=== PATIENT | male | born 1945 | race Caucasian/White ===

== ENCOUNTER → 2016-11-25 | Outpatient (CLI) | payer OTHER, MEDICARE ==
[~2016-11-25] MED LIST: ASPIR 8181 MG PO; ATORVASTATIN CA40 MG PO; FISH OIL 1,001000 M2 PO; HYDROCODONE-AP1 EAC6 PO; KEFLEX500 MG PO; UNICOMPLEX M TA1 TA1 PO
[2016-11-25 08:33] LABS: CREATININE 1.2 mg/dL (0.7-1.3)
== END ==
LOC: CAT 08:03 → LAB 09:18 → CAT 09:21
PROVIDERS: Internal Medicine
DX: R51 Headache (principal); R05 Cough

== ENCOUNTER → 2017-07-26 | Outpatient (CLI) | payer OTHER, MEDICARE | LOC: CAT 10:47 | DX: M48.54XA Collapsed vertebra, not elsewhere classified, thoracic region, initial encounter for fracture (principal); J84.9 Interstitial pulmonary disease, unspecified; N40.1 Benign prostatic hyperplasia with lower urinary tract symptoms; N13.8 Other obstructive and reflux uropathy; I63.9 Cerebral infarction, unspecified; I25.10 Atherosclerotic heart disease of native coronary artery without angina pectoris; E78.00 Pure hypercholesterolemia, unspecified ==

== ENCOUNTER → 2017-08-02 | Outpatient (CLI) | payer OTHER, MEDICARE | LOC: MRI 09:10 | DX: S73.191A Other sprain of right hip, initial encounter (principal); M16.0 Bilateral primary osteoarthritis of hip; N40.1 Benign prostatic hyperplasia with lower urinary tract symptoms; N13.8 Other obstructive and reflux uropathy; I25.10 Atherosclerotic heart disease of native coronary artery without angina pectoris; E78.00 Pure hypercholesterolemia, unspecified; X58.XXXA Exposure to other specified factors, initial encounter; Y93.89 Activity, other specified; Y92.89 Other specified places as the place of occurrence of the external cause; Y99.8 Other external cause status ==

== ENCOUNTER → 2017-10-21 | Outpatient (CLI) | payer OTHER, MEDICARE | LOC: RAD 10:01 | DX: M43.8X4 Other specified deforming dorsopathies, thoracic region (principal); M06.851 Other specified rheumatoid arthritis, right hip ==

== ENCOUNTER → 2017-12-20 | Outpatient (CLI) | payer OTHER, MEDICARE ==
--- NOTE | ~2017-12-20 | 2DMMODE ---
[facility] [address] [place] [address] 2 D/M-MODE ECHOCARDIOGRAM Name: YUMILAVERNE AYON Room #: REG [facility]#: [id number] Admission: 12/20/17 Attend Phys: Renan Bhardwaj Discharge: Date of : 47 Date of Service: 12/20/17 1054 Report #: [id number] THIS REPORT FOR: //name// APPROVED REPORT Study performed: 12/20/2017 08:10:56 EXAM: Comprehensive 2D, Doppler, and color-flow Echocardiogram Patient Location: Out-Patient Status: routine BSA: 2.22 HR: 59 bpm BP: 158/106 mmHg Rhythm: NSR Other Information Study Quality: Adequate Indications Short of breath, CAD, stent, HLP 2D Dimensions RVDd: 31.33 mm LVEF(%): 56.91 (>50%) IVSd: 12.45 (7-11mm) LVOT Diam: 25.17 (18-24mm) LVDd: 43.62 mm PWd: 10.15 (7-11mm) Ascending Ao: 37.80 (22-36mm) LVDs: 30.70 (25-40mm) Aortic Root: 43.20 mm Viera's LVEF: 56.91 % Volumes Left Atrial Volume (Systole) Single Plane 4CH: 44.82 mL Single Plane 2CH: 61.24 mL LA ESV Index: 26.00 mL/m2 Aortic Valve AoV Peak Evgeny.: 1.08 m/s AO Peak Gr.: 4.64 mmHg LVOT Max P.66 mmHg LVOT Max V: 0.64 m/s AMANDA Vmax: 2.97 cm2 Mitral Valve E/A Ratio: 0.8 MV Decel. Time: 231.62 ms [facility] [address] [place] [address] 2 D/M-MODE ECHOCARDIOGRAM Name: LAVERNE EASON Room #: REG [facility]#: [id number] Admission: 12/20/17 Attend Phys: Renan Bhardwaj Discharge: Date of : 47 Date of Service: 12/20/17 1054 Report #: [id number] MV E Max Evgeny.: 0.62 m/s MV A Evgeny.: 0.81 m/s MV PHT: 67.17 ms IVRT: 133.79 ms Pulmonary Valve PV Peak Evgeny.: 0.89 m/s PV Peak Gr.: 3.15 mmHg Pulmonary Vein P Vein S: 0.49 m/s P Vein D: 0.33 m/s P Vein S/D Ratio: 1.48 Tricuspid Valve TR Peak Evgeny.: 1.70 m/s RAP Estimate: 5.00 mmHg TR Peak Gr.: 12.00 mmHg PA Pressure: 17.00 mmHg Left Ventricle The left ventricle is normal size. Mild basal septal hypertrophy is present. Left ventricular systolic function is normal. LVEF is 55%. Mild diastolic dysfunction is present (impaired relaxation pattern). Right Ventricle The right ventricle is normal size. The right ventricular systolic function is normal. Atria The left atrium size is normal. The right atrium size is normal. Aortic Valve Aortic valve is mildly calcified. Trace aortic regurgitation. There is no aortic valvular stenosis. Mitral Valve The mitral valve is normal in structure. Mild mitral regurgitation. Tricuspid Valve The tricuspid valve is normal in structure. Mild tricuspid regurgitation. Estimated PAP is 17mmHg. Pulmonic Valve The pulmonary valve is normal in structure. Trace pulmonic [facility] [address] [place] [address] 2 D/M-MODE ECHOCARDIOGRAM Name: LAVERNE EASON Room #: REG [facility]#: [id number] Admission: 12/20/17 Attend Phys: Renan Bhardwaj Discharge: Date of : 47 Date of Service: 12/20/17 1054 Report #: [id number] regurgitation. 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 The ascending aorta is normal in size. IVC is normal in size and collapses >50% with inspiration. Pericardium There is no pericardial effusion. <Conclusion> The left ventricle is normal size. LVEF is 55%. Aortic valve is mildly calcified. Trace aortic regurgitation. The mitral valve is normal in structure. Mild mitral regurgitation. The tricuspid valve is normal in structure. Mild tricuspid regurgitation. Estimated PAP is 17mmHg. 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 There is no pericardial effusion. <ELECTRONICALLY SIGNED> By: Renan Cordon MD 12/20/17 1054 1054 1054 Renan Cordon MD /INF
== END ==
LOC: NUC 06:49
DX: I25.10 Atherosclerotic heart disease of native coronary artery without angina pectoris (principal); I08.1 Rheumatic disorders of both mitral and tricuspid valves; R06.00 Dyspnea, unspecified

== ENCOUNTER 2018-06-03 09:02 | Emergency (ER) | payer OTHER, MEDICARE ==
[~2018-06-03] VITALS: Ht 188 cm; Wt 95.3 kg
[2018-06-03 09:27] LABS: URINE BILIRUBIN NEGATIVE (Negative); URINE BLOOD NEGATIVE (Negative); URINE CLARITY CLEAR; URINE COLOR YELLOW; URINE GLUCOSE-RANDOM* NEGATIVE (Negative); URINE KETONES NEGATIVE (Negative); URINE LEUKOCYTES-REFLEX NEGATIVE (Negative); URINE NITRITE-REFLEX NEGATIVE (Negative); URINE PROTEIN (DIPSTICK) NEGATIVE (Negative); URINE SPECIFIC GRAVITY 1.025 (1.005-1.035); URINE UROBILINOGEN 0.2 E.U./dl (0.2-1.0)
[2018-06-03 09:28] LABS: ABSOLUTE NEUTROPHILS 3.2 thou/uL (1.4-8.2); BASOPHILS 0.8 % (0.0-2.0); EOSINOPHILS 4.3 % (0.0-3.0); HEMATOCRIT 41.2 % (42.0-52.0); HEMOGLOBIN 14.3 gm/dL (14.0-18.0); LYMPHOCYTES 29.5 % (24.0-44.0); MCH 32.1 pg (26.0-34.0); MCHC 34.8 g/dL (28.0-37.0); MCV 92.1 fL (80.0-100.0); MONOCYTES 10.9 % (1.0-8.0); PLATELET COUNT 243 thou/uL (150-400); POLYS 54.5 % (36.0-66.0); RBC 4.47 mil/uL (4.50-6.00); RDW 13.6 % (10.5-14.5); WBC 5.9 thou/uL (4.0-11.0)
[2018-06-03 09:34] LABS: CREATININE 1.1 mg/dL (0.7-1.3); POTASSIUM 4.1 mmol/L (3.5-5.1)
[2018-06-03 09:41] LABS: TOTAL BILIRUBIN 1.4 mg/dL (<0.1-1.0); TOTAL PROTEIN 7.2 g/dL (6.4-8.2)
[2018-06-03] MEDS ORDERED: IMODIUM A-D2 MG PO (14:27)
[2018-06-03 14:54] VITALS: BP 123/77
== END 2018-06-03 14:56 | disposition home or self-care (01) ==
LOC: ER 09:02
PROVIDERS: Student in an Organized Health Care Education/Training Program
DX: R19.7 Diarrhea, unspecified (principal); R53.1 Weakness; R10.9 Unspecified abdominal pain; I25.2 Old myocardial infarction; Z88.2 Allergy status to sulfonamides; Z88.8 Allergy status to other drugs, medicaments and biological substances

== ENCOUNTER → 2019-04-18 | Outpatient (CLI) | payer OTHER, MEDICARE ==
[~2019-04-18] VITALS: Ht 188 cm; Wt 95.3 kg
[~2019-04-18] MED LIST changes: +CRESTOR40 MG PO; +IMODIUM A-D2 MG PO; +NITROGLYCERIN0.4 MG SUBLING; +RITUXAN100 MG/10 IV
--- NOTE | 2019-04-23 12:48 | P ---
[facility] [place] [address] PROCEDURE REPORT Name: LAVERNE EASON Room #: REG [facility]#: [id number] Admission: 04/18/19 Attend Phys: Chris Skinner Discharge: Date of : 47 Report #: [id number] THIS REPORT FOR: //name// CC: Chris Huggins MD DATE OF SERVICE: 04/18/2019 PROCEDURE PERFORMED: Colonoscopy. HISTORY OF PRESENT ILLNESS: The patient is a 73-year-old male with a history of colon polyps. Denies any symptoms. Here for a 5-year followup. No family history of colon cancer. DESCRIPTION OF PROCEDURE: The risks and benefits of the procedure were explained to the patient, those risks including but not limited to bleeding, perforation and the risk of sedation. He understood these risks and gave informed consent. Sedation was given using propofol per anesthesia. Next, a digital rectal exam was initially performed, which was normal. Next, using a standard Olympus colonoscope, the scope was placed in the patient's anus and advanced under direct vision to the cecum. The overall prep was excellent. The cecum and ileocecal valve were normal in appearance. The ascending, transverse and descending colon were normal. A few scattered diverticula were noted in the sigmoid colon, no evidence of inflammation, otherwise normal. The rectal mucosa was normal. On retroflexion, small nonbleeding internal hemorrhoids were noted. The scope was then withdrawn and the procedure terminated. The patient tolerated the procedure well. IMPRESSION: 1. Sigmoid diverticulosis. 2. Small internal hemorrhoids. 3. Otherwise, normal colonoscopy. RECOMMENDATIONS: Consider repeat colonoscopy in 10 years. Thank you for allowing me to participate in his care. <ELECTRONICALLY SIGNED> By: Chris Hinton MD 04/23/19 1248 0936 0035 Chris Hinton MD /nt
== END | disposition home or self-care (01) ==
LOC: GI 03-07 10:09
DX: Z12.11 Encounter for screening for malignant neoplasm of colon (principal); Z86.010 Personal history of colon polyps; K57.30 Diverticulosis of large intestine without perforation or abscess without bleeding; K64.8 Other hemorrhoids; E78.5 Hyperlipidemia, unspecified; I25.2 Old myocardial infarction; M06.9 Rheumatoid arthritis, unspecified; Z87.891 Personal history of nicotine dependence; Z86.73 Personal history of transient ischemic attack (TIA), and cerebral infarction without residual deficits; Z85.828 Personal history of other malignant neoplasm of skin; Z98.41 Cataract extraction status, right eye; Z98.42 Cataract extraction status, left eye; Z98.890 Other specified postprocedural states; Z79.899 Other long term (current) drug therapy; Z88.2 Allergy status to sulfonamides; Z88.8 Allergy status to other drugs, medicaments and biological substances; Z79.82 Long term (current) use of aspirin
CPT/HCPCS: 62110; 62900

== ENCOUNTER → 2019-07-12 | Outpatient (CLI) | payer OTHER, MEDICARE ==
[2019-07-12 12:23] LABS: CREATININE 1.5 mg/dL (0.7-1.3)
== END ==
LOC: MRI 11:20
PROVIDERS: Family Medicine
DX: G31.9 Degenerative disease of nervous system, unspecified (principal); R90.82 White matter disease, unspecified; H53.419 Scotoma involving central area, unspecified eye; M06.9 Rheumatoid arthritis, unspecified

== ENCOUNTER → 2019-07-30 | Outpatient (CLI) | payer OTHER, MEDICARE | LOC: SJCVC 09:36 | DX: I45.10 Unspecified right bundle-branch block (principal); R94.31 Abnormal electrocardiogram [ECG] [EKG]; I25.10 Atherosclerotic heart disease of native coronary artery without angina pectoris; I73.9 Peripheral vascular disease, unspecified; E78.00 Pure hypercholesterolemia, unspecified; Z79.82 Long term (current) use of aspirin; Z79.2 Long term (current) use of antibiotics; Z90.89 Acquired absence of other organs; Z79.899 Other long term (current) drug therapy; Z87.891 Personal history of nicotine dependence; Z86.718 Personal history of other venous thrombosis and embolism ==

== ENCOUNTER → 2019-09-03 | Outpatient (CLI) | payer OTHER, MEDICARE | LOC: SJCVC 09:45 | DX: I25.10 Atherosclerotic heart disease of native coronary artery without angina pectoris (principal); I73.9 Peripheral vascular disease, unspecified; N40.0 Benign prostatic hyperplasia without lower urinary tract symptoms; E78.00 Pure hypercholesterolemia, unspecified; Z79.899 Other long term (current) drug therapy; Z87.891 Personal history of nicotine dependence ==

== ENCOUNTER → 2019-12-31 | Outpatient (CLI) | payer OTHER, MEDICARE | LOC: RAD 11:00 | PROVIDERS: ATTEND Family Medicine | DX: R05 Cough (principal); M48.54XA Collapsed vertebra, not elsewhere classified, thoracic region, initial encounter for fracture ==

== ENCOUNTER → 2020-01-31 | Outpatient (CLI) | payer OTHER, MEDICARE | LOC: SJCVCIMAG 07:41 | PROVIDERS: ATTEND Internal Medicine | DX: I34.0 Nonrheumatic mitral (valve) insufficiency (principal); I51.7 Cardiomegaly; I25.10 Atherosclerotic heart disease of native coronary artery without angina pectoris ==

== ENCOUNTER → 2020-03-03 | Outpatient (CLI) | payer OTHER, MEDICARE | LOC: SJCVC 09:34 | PROVIDERS: ATTEND Internal Medicine | DX: R94.31 Abnormal electrocardiogram [ECG] [EKG] (principal); I45.10 Unspecified right bundle-branch block; I25.10 Atherosclerotic heart disease of native coronary artery without angina pectoris; E78.5 Hyperlipidemia, unspecified; I73.9 Peripheral vascular disease, unspecified; Z79.899 Other long term (current) drug therapy; Z87.891 Personal history of nicotine dependence ==

== ENCOUNTER → 2020-03-18 | Outpatient (CLI) | payer OTHER, MEDICARE | LOC: SJCVCIMAG 08:11 | PROVIDERS: ATTEND Internal Medicine | DX: I65.23 Occlusion and stenosis of bilateral carotid arteries (principal); I71.4 Abdominal aortic aneurysm, without rupture; I45.10 Unspecified right bundle-branch block; I49.3 Ventricular premature depolarization; I73.9 Peripheral vascular disease, unspecified; E78.5 Hyperlipidemia, unspecified; I25.10 Atherosclerotic heart disease of native coronary artery without angina pectoris; Z95.820 Peripheral vascular angioplasty status with implants and grafts; Z87.891 Personal history of nicotine dependence ==

== ENCOUNTER → 2021-06-10 | Outpatient (CLI) | payer OTHER, MEDICARE ==
[~2021-06-10] VITALS: Ht 188 cm; Wt 93.9 kg
[~2021-06-10] MED LIST changes: +FISH OIL 1,0001 EAC9 PO; +LO-DOSE ASPIRIN81 M1 PO; +MULTI VITAMIN1 EACH PO; +PROTONIX40 M2 PO
--- NOTE | 2021-06-10 12:23 | P ---
[facility] [place] [address] PROCEDURE REPORT Name: LAVERNE EASON [id number] Admission: 06/10/21 Attend Phys: Chris Skinner Discharge: Date of : 47 Report #: [id number] THIS REPORT FOR: cc: Juan Huggins MD, Rene P. MD McElhinney, Christian C. MD ~ cc: Juan Huggins MD DATE OF SERVICE: 06/10/2021 PROCEDURE PERFORMED: Upper endoscopy with biopsies. HISTORY OF PRESENT ILLNESS: The patient is a 75-year-old male with a history of gastroesophageal reflux disease, had a chronic cough. I performed an upper endoscopy on the patient on 04/25/2020. Biopsies were positive for short segment of Caicedo's. No evidence of dysplasia. At the time, he had just started PPI therapy. He had continued cough and therefore the PPI was increased to b.i.d. Since being on b.i.d. dosing, he denies any further cough. Also, at the time of the previous endoscopy, he had a Schatzki's ring and dysphagia. I dilated his esophagus at that time. He denies any further dysphagia. He is here for 1-year followup. DESCRIPTION OF PROCEDURE: The risks and benefits of the procedure were explained to the patient, those risks including but not limited to bleeding, perforation and the risk of sedation. He understood these risks and gave informed consent. Sedation was given using propofol per anesthesia. Next, using a standard Olympus upper endoscope, the scope was placed in the patient's mouth and advanced under direct vision through the esophagus, stomach and into the second portion of the duodenum. The larynx was normal in appearance. The upper and mid esophagus was normal. A single small pink mucosal tongue was noted in the distal esophagus. Biopsies were obtained to rule out Caicedo's. Upon entering the stomach, a small hiatal hernia was noted. Overall, the gastric mucosa was normal. The pylorus was normal and patent. The duodenal bulb, first and second portion were all normal. The scope was then withdrawn and the procedure terminated. The patient tolerated the procedure well. IMPRESSION: 1. Short segment Caicedo's esophagus. 2. Small hiatal hernia. 3. Otherwise, normal upper endoscopy. RECOMMENDATIONS: 1. Await biopsy results. 2. I explained to the patient he could drop Protonix to once a day. If, however, he has recurrent cough, then would stay on b.i.d. therapy long-term. [address] [address] PROCEDURE REPORT Name: LAVERNE EASON Room #: REG [facility] Brenda#: [id number] Admission: 06/10/21 Attend Phys: Chris Skinner Discharge: Date of : 47 Report #: [id number] Thank you for allowing me to participate in his care. <ELECTRONICALLY SIGNED> By: Chris Hintno MD 06/10/21 1223 0945 1012 Chris Hinton MD /nt
--- NOTE | 2021-06-12 14:07 | PATH ---
[facility] [address] [place] [address] PATHOLOGY RPT PROCEDURE Name: LEIGHTONDeonnaLAVERNEBERNABE AYON Room #: REG [facility] [place].#: [id number] Admission: 06/10/21 Date of : 47 Discharge: Report #: [id number] Path Case #: [id number] [facility] Accession Number: [id number] . 01 Material submitted: . esophagus - DISTAL ESOPHAGUS BIOPSY- HX OF MOCTEZUMA'S. Modifiers: distal . 01 Clinical history: . ESOPHAGOGASTRODUODENOSCOPY MOCTEZUMA'S ESOPHAGUS . 01 Diagnosis: Distal esophagus biopsy: - Glandular gastric type mucosa revealing reactive changes. - There is no evidence of goblet cell metaplasia, dysplasia or malignancy. . (SHA:pit; 06/12/2021) P 06/12/2021 1144 Local . 01 Comment: Clinical history of Moctezuma's esophagus noted. (SHA:pit; 06/12/2021) . . 01 Electronically signed: . Sathish Mares MD, Pathologist NPI- [id number] . 01 Gross description: . The specimen is received in formalin, labeled "Laverne Eason, distal esophagus hx of Moctezuma's". Received is a single segment of pale butler tissue measuring 0.3 cm in maximum dimensions. The specimen is entirely submitted in cassette A1. ([facility]; 06/11/2021) NRI/NRI 06/11/2021 1802 Local . 01 Pathologist provided ICD-10: K22.9 . 01 CPT . 199986 Specimen Comment: A courtesy copy of this report has been sent to [phone], [phone] Specimen Comment: [phone] Specimen Comment: Report sent to / DR DE LEON Performed at: [address] [place] [address] PATHOLOGY RPT PROCEDURE Name: LAVERNE EASON Room #: REG CLI [facility]#: [id number] Admission: 06/10/21 Date of : 47 Discharge: Report #: [id number] Path Case #: [id number] [id number] MD Sathish Mares MD Phone: [phone]
== END | disposition home or self-care (01) ==
LOC: EDSTATUS 08:45 → GI 08:50
PROVIDERS: ATTEND Specialist
DX: K21.9 Gastro-esophageal reflux disease without esophagitis (principal); K22.9 Disease of esophagus, unspecified; K22.70 Barrett's esophagus without dysplasia; K44.9 Diaphragmatic hernia without obstruction or gangrene; E78.5 Hyperlipidemia, unspecified; I25.2 Old myocardial infarction; M06.9 Rheumatoid arthritis, unspecified; Z98.890 Other specified postprocedural states; Z79.899 Other long term (current) drug therapy; Z20.822 Contact with and (suspected) exposure to COVID-19; Z87.891 Personal history of nicotine dependence; Z85.828 Personal history of other malignant neoplasm of skin; Z96.691 Finger-joint replacement of right hand; Z86.73 Personal history of transient ischemic attack (TIA), and cerebral infarction without residual deficits; Z88.8 Allergy status to other drugs, medicaments and biological substances; Z88.2 Allergy status to sulfonamides
CPT/HCPCS: 62110; 62900

== ENCOUNTER → 2021-07-07 | Outpatient (CLI) | payer OTHER, MEDICARE | LOC: SJCVC 14:16 | PROVIDERS: ATTEND Internal Medicine | DX: I45.10 Unspecified right bundle-branch block (principal); R94.31 Abnormal electrocardiogram [ECG] [EKG]; R06.00 Dyspnea, unspecified; R00.2 Palpitations; I73.9 Peripheral vascular disease, unspecified; E78.5 Hyperlipidemia, unspecified; N40.0 Benign prostatic hyperplasia without lower urinary tract symptoms; I25.10 Atherosclerotic heart disease of native coronary artery without angina pectoris; M06.9 Rheumatoid arthritis, unspecified; Z86.16 Personal history of COVID-19; Z87.891 Personal history of nicotine dependence; Z72.89 Other problems related to lifestyle; Z79.82 Long term (current) use of aspirin; Z79.899 Other long term (current) drug therapy; Z82.49 Family history of ischemic heart disease and other diseases of the circulatory system; Z88.2 Allergy status to sulfonamides; Z88.8 Allergy status to other drugs, medicaments and biological substances ==